=== PATIENT | male | born 1970 | race Caucasian/White ===

== ENCOUNTER 2020-05-20 11:24 | Emergency (ER) | payer BC ==
[~2020-05-20] VITALS: Ht 170.2 cm; Wt 83.9 kg
[2020-05-20 11:27] VITALS: BP_SYST 154
[2020-05-20 13:10] VITALS: BP_SYST 116
== END 2020-05-20 13:10 | disposition home or self-care (01) ==
LOC: SED 11:24
DX: J18.9 Pneumonia, unspecified organism (principal); R07.89 Other chest pain; R06.02 Shortness of breath
CPT/HCPCS: 71045; 99283